=== PATIENT | male | born 1950 | race Caucasian/White ===

== ENCOUNTER 2016-11-29 06:33 | Outpatient (CLI) | payer MEDICARE ==
[~2016-11-29] VITALS: Ht 176.5 cm; Wt 83.5 kg
[2016-11-29] VITALS (11 sets, daily range): BP systolic 106–143; BP diastolic 64–82
[~2016-11-29 06:33] MED LIST: ALPR0.25 PO; ASPI325T11 PO; ATOR20TA58 PO; LISI40TA PO; PRAS10TA4 PO
[2016-11-29] MEDS ORDERED: SERT100T8 PO (06:53)
[2016-11-29] MEDS ORDERED: CRESTOR20 MG PO (06:53)
[2016-11-29] MEDS ORDERED: ASPI81TA2 PO (06:53)
[2016-11-29] MEDS ORDERED: OMEP20CA9 PO (06:53)
[2016-11-29] MEDS ORDERED: CLON1TAB3 PO (06:53)
[2016-11-29] MEDS ORDERED: CLOP75TA PO (06:53)
[2016-11-29] MEDS ORDERED: MULT1TAB6 PO (06:53)
[2016-11-29] MEDS ORDERED: IV NORMAL SALINE 1000ML BAG 1,000 ML IV SCH (07:00)
[2016-11-29 07:03] LABS: HEMATOCRIT 43.6 % (39.0-53.0); HEMOGLOBIN 14.9 g/dL (13.0-17.5); RED BLOOD COUNT 4.78 x10^6/uL (4.30-5.70); RED CELL DISTRIBUTION WIDTH 13.8 % (11.5-14.5); WHITE BLOOD COUNT 6.3 x10^3/uL (4.0-11.0)
[2016-11-29] MEDS ORDERED: LIDOCAINE 2% 20 ML VIAL. ONE (07:10)
[2016-11-29] MEDS ORDERED: IODIXANOL 320 MG/ML 100 ML VIAL. ONE ×2 (07:10→11:12)
[2016-11-29 07:14] LABS: CALCIUM 9.3 mg/dL (8.5-10.1); GFR 74.5; POTASSIUM 4.4 mmol/L (3.5-5.1)
[2016-11-29 07:19] LABS: INR 1.1 (0.8-1.1); PROTHROMBIN TIME PATIENT 13.5 SEC (11.7-14.0)
[2016-11-29] MEDS ORDERED: MIDAZOLAM HCL 2 MG/2 ML VIAL. ONE ×2 (10:43→11:26)
[2016-11-29] MEDS ORDERED: FENTANYL PF 100 MCG/2 ML VIAL. ONE ×2 (10:44→11:26)
[2016-11-29] MEDS ORDERED: MIDAZOLAM HCL 2 MG/2 ML VIAL. IV ONE (11:00)
[2016-11-29] MEDS ORDERED: LIDOCAINE 2% 20 ML VIAL. IJ ONE (11:00)
[2016-11-29] MEDS ORDERED: FENTANYL PF 100 MCG/2 ML VIAL. IV ONE (11:00)
[2016-11-29] MEDS ORDERED: HEPARIN for IV BOLUS 10,000 UNIT/10 ML VIAL. ONE ×2 (11:01→11:15)
[2016-11-29] MEDS ORDERED: DILTIAZEM IV PUSH 10 MG, NITROGLYCERIN 4MG SYRINGE 4 MG, HEPARIN S0DIUM 10,000 UNIT, VI... INT CAT ONE ×5 (11:45)
[2016-11-29] MEDS ORDERED: IV RINGERS,LACTATED 1000ML 1,000 ML IV SCH (12:14)
--- NOTE | 2016-11-29 12:14 | PDOC ---
MODERATE SEDATION ASSESSMENT RISKS/ALTERNATIVES Risks/Alternatives Risks and alternatives of this type of sedation and procedure discussed with: RISK/ALTERNATIVES: Patient H & P ON CHART H & P H & P on chart and reviewed for co-morbid conditions and appropriate labs. H&P ON CHART: Yes STATUS PREG STATUS ASSESSED: N/A MEDS/ALLERGIES REVIEWED Meds/Allergies Reviewed Medications and Allergies including time and route of recently administered narcotics and sedatives. MEDS/ALLERGIES REVIEWED: Yes ASA RATING ASA RATING: II AIRWAY ASSESSMENT Airway Assessment Airway patency, oral function limitations, presence of caps, crowns, dentures, partials, and ability to extend neck assessed. AIRWAY ASSESSMENT: Yes MALLAMPATI SCORE MALLAMPATI SCORE: II PRE-SEDATION ASSESSMENT PRE-SEDATION ASSESSMENT: Yes ROBERTO NOE MD Nov 29, 2016 12:14
[2016-11-29] MEDS ORDERED: HEPARIN for IV BOLUS 10,000 UNIT/10 ML VIAL. IV ONE (12:15)
[2016-11-29] MEDS ORDERED: IODIXANOL 320 MG/ML 100 ML VIAL. IART ONE (12:15)
[2016-11-29] MEDS ORDERED: ACETAMINOPHEN 325 MG TABLET. PO PRN (12:15)
[2016-11-29] MEDS ORDERED: CONTRAST GIVEN MC PRN (12:15)
--- NOTE | 2016-11-29 15:28 | CARD ---
APPROVED REPORT Patient StatusOUT-PATIENT Fiber Analyst: RT Thomas (R) Procedure(s) performed: 1. Aortogram with bilateral lower extremity runoff 2. Successful orbital atherectomy/LEAN MANUFACTURING COORDINATOR to right posterior tibial and peroneal arteries. INDICATION FOR PROCEDURE The indication(s) include : Peripheral vascular disease with claudication. PROCEDURE NARRATIVE After explaining the risks, benefits and alternative options, informed consent was obtained from tabatha ent. Patient was brought to the cardiac Lean Consultant and his left groin was prepped and draped in the usu al fashion. 20 mL of 2% lidocaine was infiltrated into the skin and subcutaneous tissues for local an esthesia. Arterial access was obtained in the left common femoral artery and 5 Malay sheath was inse rted. A 5 Malay pigtail catheter was used to perform aortogram with bilateral lower extremity runoff . The following findings were noted. FINDINGS 1. No significant stenosis involving distal descending aorta and right common iliac artery. The left common iliac artery showed 20% stenosis in the proximal segment. 2. No significant stenosis involving bilateral external iliac and common femoral arteries. 3. The right superficial femoral artery showed calcified 50% stenosis in the mid to distal segment. The left superficial femoral artery showed 80% calcified stenosis in the distal segment. 4. No significant stenosis involving bilateral popliteal arteries. 5. The right anterior tibial artery showed 100% chronic total occlusion in the proximal to midsegmen t. The tibioperoneal trunk showed 90% bifurcation stenosis. The left anterior tibial artery showed lo ng 80-90% stenosis in the midsegment. The left posterior tibial and peroneal arteries did not show an y significant stenosis. INTERVENTION The sheath in the left groin was exchanged to a 6 Malay 45 cm destination sheath was advanced over t he aortic inge with the help of a Crossover catheter and the tip was positioned in the right common femoral artery. Contrast injections through the sheath with multiple angulated views of the right villegas perficial femoral artery did not show any critical lesions. The stenosis in the tibioperoneal trunk was crossed into the right peroneal artery with a 0.014 inch viper guidewire and multiple orbital ath erectomy passes were performed using 1.25 CSI stealth atherectomy catheter. Atherectomy passes were a lso performed within the lesion into the right posterior tibial artery. The lesion was dilated at the bifurcation into the right peroneal artery and subsequently into the right posterior tibial artery. A 3.0 x 20 mm armada balloon. Follow-up angiography showed resolution of the stenosis to 0% with good distal flow. Patient tolerated the procedure well. Hemostasis in the left groin was achieved using P erclose suture closure device. There were no immediate complications. Conclusion 1. Bilateral lower extremity peripheral vascular disease as described above 2. Successful orbital atherectomy/LEAN MANUFACTURING COORDINATOR to right peroneal and posterior tibial arteries. Recommendations Plan for staged atherectomy/LEAN MANUFACTURING COORDINATOR to left superficial femoral artery in 2 weeks. Risk factor modification and regular exercise regimen.
== END 2016-11-29 16:00 | disposition home or self-care (01) ==
LOC: CCL 06:33
PROVIDERS: ATTEND Internal Medicine Cardiovascular Disease
DX: I73.9 Peripheral vascular disease, unspecified (principal); I70.201 Unspecified atherosclerosis of native arteries of extremities, right leg; E78.00 Pure hypercholesterolemia, unspecified; I10 Essential (primary) hypertension; Z90.49 Acquired absence of other specified parts of digestive tract; F41.9 Anxiety disorder, unspecified
CPT/HCPCS: 36415; 37229; 37233; 75625; 75716; 80048; 85027; 85610; 85730; C1769; C1771; C1885; C1892; G0269; J2250; J3010; J3490; J7030; 37232

== ENCOUNTER 2016-12-20 07:23 | Observation (INO) | payer MEDICARE ==
[2016-12-20] VITALS (14 sets, daily range): BP systolic 106–145; BP diastolic 56–80
[~2016-12-20] VITALS: Ht 177.8 cm; Wt 86.7 kg
[~2016-12-20 07:23] MED LIST changes: +ASPI81TA2 PO; +CLON1TAB3 PO; +CLOP75TA PO; +CRESTOR20 MG PO; +MULT1TAB6 PO; +OMEP20CA9 PO; +SERT100T8 PO
[2016-12-20] MEDS ORDERED: IV NORMAL SALINE 1000ML BAG 1,000 ML IV SCH (07:34)
[2016-12-20 08:11] LABS: HEMATOCRIT 44.5 % (39.0-53.0); HEMOGLOBIN 15.2 g/dL (13.0-17.5); RED BLOOD COUNT 4.83 x10^6/uL (4.30-5.70); RED CELL DISTRIBUTION WIDTH 13.5 % (11.5-14.5); WHITE BLOOD COUNT 7.4 x10^3/uL (4.0-11.0)
[2016-12-20 08:14] LABS: CALCIUM 9.5 mg/dL (8.5-10.1); GFR 74.5; POTASSIUM 4.1 mmol/L (3.5-5.1)
[2016-12-20] MEDS ORDERED: LIDOCAINE 2% 20 ML VIAL. ONE (08:14)
[2016-12-20] MEDS ORDERED: HEPARIN for ARTERIAL LINE 1,500 ML ONE (08:14)
[2016-12-20] MEDS ORDERED: IODIXANOL 320 MG/ML 100 ML VIAL. ONE ×2 (08:15→08:17)
[2016-12-20 08:21] LABS: INR 1.1 (0.8-1.1); PROTHROMBIN TIME PATIENT 13.2 SEC (11.7-14.0)
[2016-12-20] MEDS ORDERED: MIDAZOLAM HCL/PF 5 MG/5 ML VIAL IV ONE (08:45)
[2016-12-20] MEDS ORDERED: IODIXANOL 320 MG/ML 100 ML VIAL. IART ONE (08:45)
[2016-12-20] MEDS ORDERED: FENTANYL PF 250 MCG/5 ML VIAL. IV ONE (08:45)
[2016-12-20] MEDS ORDERED: LIDOCAINE 2% 20 ML VIAL. IJ ONE (08:45)
[2016-12-20] MEDS ORDERED: MIDAZOLAM HCL/PF 5 MG/5 ML VIAL ONE (08:53)
[2016-12-20] MEDS ORDERED: FENTANYL PF 250 MCG/5 ML VIAL. ONE (08:53)
[2016-12-20] MEDS ORDERED: HEPARIN for IV BOLUS 10,000 UNIT/10 ML VIAL. ONE (08:53)
[2016-12-20] MEDS ORDERED: NITROGLYCERIN 4 MG/20 ML SYRINGE for CATH LAB. ONE ×2 (09:00→09:11)
[2016-12-20] MEDS ORDERED: DILTIAZEM IV PUSH 25 MG/5 ML VIAL. ONE (09:11)
[2016-12-20] MEDS ORDERED: DILTIAZEM IV PUSH 10 MG, NITROGLYCERIN 4MG SYRINGE 4 MG, HEPARIN S0DIUM 10,000 UNIT, VI... INT CAT ONE ×5 (09:30)
[2016-12-20] MEDS ORDERED: NITROGLYCERIN 200 MCG/2 ML SYRINGE FOR CATH/VASC LAB. IART ONE (09:30)
[2016-12-20] MEDS ORDERED: HEPARIN for IV BOLUS 10,000 UNIT/10 ML VIAL. IV ONE (09:30)
--- NOTE | 2016-12-20 10:36 | PDOC ---
MODERATE SEDATION ASSESSMENT RISKS/ALTERNATIVES Risks/Alternatives Risks and alternatives of this type of sedation and procedure discussed with: RISK/ALTERNATIVES: Patient H & P ON CHART H & P H & P on chart and reviewed for co-morbid conditions and appropriate labs. H&P ON CHART: Yes STATUS PREG STATUS ASSESSED: N/A MEDS/ALLERGIES REVIEWED Meds/Allergies Reviewed Medications and Allergies including time and route of recently administered narcotics and sedatives. MEDS/ALLERGIES REVIEWED: Yes ASA RATING ASA RATING: I AIRWAY ASSESSMENT Airway Assessment Airway patency, oral function limitations, presence of caps, crowns, dentures, partials, and ability to extend neck assessed. AIRWAY ASSESSMENT: Yes MALLAMPATI SCORE MALLAMPATI SCORE: II PRE-SEDATION ASSESSMENT PRE-SEDATION ASSESSMENT: Yes ROBERTO NOE MD Dec 20, 2016 10:36
[2016-12-20] MEDS ORDERED: FENTANYL PF 100 MCG/2 ML VIAL. IV ONE (10:45)
[2016-12-20] MEDS ORDERED: MIDAZOLAM HCL 2 MG/2 ML VIAL. IV ONE (10:45)
[2016-12-20] MEDS ORDERED: ACETAMINOPHEN 325 MG TABLET. PO PRN (10:45)
--- NOTE | 2016-12-20 10:45 | CARD ---
APPROVED REPORT Patient StatusOUT-PATIENT Wellness Guide: Betzaida Gore RT (R) Procedure(s) performed: Successful orbital atherectomy and balloon CADDIE to the left superficial femora l artery INDICATION FOR PROCEDURE The indication(s) include : Peripheral vascular disease with claudication. PROCEDURE NARRATIVE After explaining the risks, benefits and alternative options, informed consent was obtained from tabatha ent. Patient was brought to the cardiac Grading Machine Feeder and his right groin was prepped and draped in the us ual fashion. 20 mL of 2% lidocaine was infiltrated into the skin and subcutaneous tissues for local a nesthesia. Arterial access was obtained in the right common femoral artery and a 6 [place] 45 cm desti [place] sheath was inserted. This was advanced over the aortic inge with the help off across oval ca theter and the tip was positioned in the left common femoral artery. Selective angiography confirmed the previously described 80% heavily calcified stenosis involving the mid to distal segment of the le ft superficial femoral artery. This was successfully crossed with a 0.014 inch viper guidewire. Multiple orbital atherectomy passes were performed using a 1.5 CSI Stealth atherectomy catheter. Subsequently, the lesion was dilated wit h a 5.5 x 100 mm Jackson Hi [place] balloon. Follow-up angiography showed resolution of the stenosis to 0% . There appeared to be arteriovenous fistula that improved with prolonged balloon inflation within th e lesion with 5.5 x 150 mm Jackson armada balloon. Patient tolerated the procedure well. Hemostasis in the right groin was achieved using Perclose suture closure device. There were no immediate complicat ions. Conclusion Successful orbital atherectomy/balloon CADDIE to the left superficial femoral artery. Recommendations Risk factor modification and regular exercise regimen.
[2016-12-20] MEDS: IV 1/2 NORMAL SALINE 1,000 ML IV SCH ×2 (12:31→22:28)
[2016-12-20] MEDS: ASPIRIN 81 MG TAB.CHEW PO SCH (14:00)
[2016-12-20] MEDS: MULTIVITAMIN with MINERAL TABLET. PO SCH (14:00)
[2016-12-20] MEDS ORDERED: ATORVASTATIN CALCIUM 40 MG TABLET. PO SCH (21:00)
[2016-12-20] MEDS ORDERED: CLONAZEPAM 1 MG TABLET PO SCH (21:00)
[2016-12-21 03:00] VITALS: BP 115/68
[2016-12-21 07:00] VITALS: BP 122/71
[2016-12-21] MEDS ORDERED: PANTOPRAZOLE 40 MG TABLET. PO SCH (07:30)
[2016-12-21] MEDS: ASPIRIN 81 MG TAB.CHEW PO SCH (08:22)
[2016-12-21 08:23] VITALS: BP 122/71
[2016-12-21] MEDS: MULTIVITAMIN with MINERAL TABLET. PO SCH (08:23)
[2016-12-21] MEDS ORDERED: CLONAZEPAM 1 MG TABLET PO SCH (09:00)
[2016-12-21] MEDS ORDERED: CLOPIDOGREL BISULFATE 75 MG TABLET PO SCH (09:00)
[2016-12-21] MEDS ORDERED: SERTRALINE 50 MG TABLET. PO SCH (09:00)
[2016-12-21] MEDS ORDERED: LISINOPRIL 40 MG TABLET. PO SCH (09:00)
--- NOTE | 2016-12-21 11:05 | PDOC3 ---
Discharge Summary Visit Information Date of Admission: Dec 20, 2016 Date of Discharge: Dec 21, 2016 Admitting Diagnosis Comment: PVD with claudication CAD Hypertension hyperlipidemia Final Diagnosis Problems Medical Problems: (1) Peripheral vascular disease of extremity with claudication Status: Acute CAD Hypertension hyperlipidemia Brief Hospital Course Allergies Allergies Coded Allergies Type Severity Reaction Last Updated Verified No Known Drug Allergies 01/15/16 No Vital Signs Vital Signs Date Time Temp Pulse Resp B/P Pulse Ox O2 Delivery O2 Flow Rate FiO2 12/21/16 08:23 64 122/71 12/21/16 08:00 Room Air 12/21/16 07:00 98.1 20 97 98.1 12/20/16 10:26 2.0 Lab Results Laboratory Tests Test 12/20/16 07:45 White Blood Count 7.4x10^3/uL (4.0-11.0) Red Blood Count 4.83x10^6/uL (4.30-5.70) Hemoglobin 15.2g/dL (13.0-17.5) Hematocrit 44.5% (39.0-53.0) Mean Corpuscular Volume 92fL (79-100) Mean Corpuscular Hemoglobin 31pg (25-35) Mean Corpuscular Hemoglobin Concent 34g/dL (31-37) Red Cell Distribution Width 13.5% (11.5-14.5) Platelet Count 182x10^3/uL (140-400) Prothrombin Time 13.2SEC (11.7-14.0) Prothromb Time International Ratio 1.1 (0.8-1.1) Activated Partial Thromboplast Time 27SEC (24-38) Sodium Level 140mmol/L (136-145) Potassium Level 4.1mmol/L (3.5-5.1) Chloride Level 104mmol/L (98-107) Carbon Dioxide Level 24mmol/L (21-32) Anion Gap 12 (6-14) Blood Urea Nitrogen 14mg/dL (8-26) Creatinine 1.0mg/dL (0.7-1.3) Estimated GFR (Cockcroft-Gault) 74.5 Glucose Level 122mg/dL (70-99) Calcium Level 9.5mg/dL (8.5-10.1) Brief Hospital Course Mr. Chavez is a 66 old bilateral LE pain. He initially underwent evaluation and treatment of the RLE and returned on 12/19/2016 for treatment of the LLE. He underwent orbital atherectomy/balloon ARMATURE COIL WINDER to the left superficial femoral artery.He was monitored overnight without complications. Palpable DP and PT pulses in LLE, though PT stronger than DP. Pulses in RLE 1+. 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 No evidence of dysrhythmias on telemetry overnight. Discharge Information Condition at Discharge: Stable Follow Up: Weeks (f/u with Dr. Bae in 4 weeks; f/u with PCP in 3 - 5 days) Disposition/Orders: D/C to Home Scheduled Aspirin (Aspirin) 81 MG PO DAILY (Reported) Clonazepam (Clonazepam) 1 MG PO DAILY (Reported) Clopidogrel Bisulfate (Clopidogrel) 75 MG PO DAILY (Reported) Lisinopril (Lisinopril) 1 TAB PO DAILY (Reported) Multivitamin/Iron/Folic Acid (Centrum Complete Multivit Tab) 1 EACH PO DAILY ( Reported) Omeprazole (Omeprazole) 20 MG PO DAILY (Reported) Rosuvastatin Calcium (Crestor) 20 MG PO HS (Reported) Sertraline Hcl (Sertraline Hcl) 100 MG PO DAILY (Reported) Patient Instructions Patient Instructions GENERAL INSTRUCTIONS: 1. Your dressing should be removed prior to leaving the hospital. 2. It is OK to shower the day after your procedure. 3. If you received stents, be sure to carry your stent information card with you in your wallet/purse at all times. 4. Call the office immediately at [phone] if you notice any fever or if there is redness, worsening tenderness/pain, increased bruising, or drainage from the puncture site. 5. Should you have bleeding from the site, lie down immediately & put pressure on the site. The pressure should be hard enough to stop the bleeding. Have the nearest person call 911. DO NOT try to drive to the ER with active bleeding. 6. If you notice a change in color, coolness to touch, or loss of feeling in the affected extremity, come to the emergency room. Please have someone drive you or call 911 if no one is available. DO NOT drive yourself. 7. If you normally take glucophage (metformin), please do not take this medicine for 48 hours following your procedure. 8. DO NOT STOP TAKING YOUR PLAVIX OR ASPIRIN UNLESS IT IS CLEARED BY A BULLET CASTING OPERATOR OF YOUR REFERENCE SERVICES HEAD AT OUR OFFICE. 9. QUIT SMOKING: the [place] [employer], [place] [employer], & [place] [employer] have cessation resources available on their websites 10. Please have someone available to drive you home from the hospital as you may be limited by sedation medications given during the procedure. Femoral (Groin) access: 1. Do no lifting, pushing, pulling, bending, stooping, or recurrent stair climbing for 3 days following your procedure. 2. Once past the first 3 days, do not do any HEAVY exertion or lifting for one week following the procedure. No gym workouts, running, lifting greater than a gallon of milk, etc 3. Do not submerge in bath or pool for one week. OK to drive 3 days following your procedure, but if going long distance, do not go alone & take hourly breaks to get out of car and walk around. Call the office at [phone] for any questions or concerns. EDIN CARTY APRN Dec 21, 2016 11:05
== END 2016-12-21 11:10 | disposition home or self-care (01) ==
LOC: CCL 07:23 → INTOOBSV 10:38 → 2 NORTH 10:38
PROVIDERS: ADMIT Internal Medicine Cardiovascular Disease; ATTEND Internal Medicine Cardiovascular Disease
DX: I73.9 Peripheral vascular disease, unspecified (principal); I25.10 Atherosclerotic heart disease of native coronary artery without angina pectoris; I10 Essential (primary) hypertension; E78.5 Hyperlipidemia, unspecified
CPT/HCPCS: 36415; 37225; 80048; 85027; 85610; 85730; 96374; 96375; C1769; C1771; C1885; C1892; G0378; G0379; J2250; J3010; J3490; J7030

== ENCOUNTER → 2018-02-14 | Outpatient (CLI) | payer MEDICARE | END | disposition home or self-care (01) | LOC: ECHO 12:43 | DX: Z01.818 Encounter for other preprocedural examination (principal); I35.1 Nonrheumatic aortic (valve) insufficiency; I10 Essential (primary) hypertension; E78.5 Hyperlipidemia, unspecified; E78.00 Pure hypercholesterolemia, unspecified; Z87.891 Personal history of nicotine dependence | CPT/HCPCS: 93306 ==